=== PATIENT | male | born 1950 | race Caucasian/White ===

== ENCOUNTER → 2017-06-13 | Outpatient (CLI) | payer OTHER | LOC: CIMAGING 11:25 | PROVIDERS: ATTEND Family Medicine | DX: M25.512 Pain in left shoulder (principal) | CPT/HCPCS: 73030-PO ==

== ENCOUNTER 2017-08-13 11:23 | Outpatient (CLI) | payer OTHER ==
[2017-08-13] MEDS ORDERED: NS 1,000 ML IV SCH (11:45)
[2017-08-13] MEDS ORDERED: MIDAZOLAM 2 MG/2 ML VIAL ONE (11:55)
[2017-08-13] MEDS ORDERED: FLUMAZENIL 0.5 MG/5 ML MDV IVP ONE (11:55)
[2017-08-13] MEDS ORDERED: NALOXONE HCL 0.4 MG/ML INJ ONE (11:55)
[2017-08-13] MEDS ORDERED: fentaNYL 100 MCG/2 ML INJ ONE (11:56)
[2017-08-13 15:33] VITALS: BP 124/82; O2SAT 90
== END 2017-08-13 15:15 | disposition home or self-care (01) ==
LOC: FIMAGING 11:23
PROVIDERS: ATTEND Family Medicine
DX: M75.22 Bicipital tendinitis, left shoulder (principal); M25.812 Other specified joint disorders, left shoulder
CPT/HCPCS: 73221; J2250; J3010; J2310

== ENCOUNTER 2017-11-13 11:42 | Outpatient (CLI) | payer OTHER ==
[2017-11-13] MEDS ORDERED: NALOXONE HCL 0.4 MG/ML INJ IVP PRN (11:59)
[2017-11-13] MEDS ORDERED: FLUMAZENIL 0.5 MG/5 ML MDV IVP PRN (11:59)
[2017-11-13] MEDS ORDERED: MIDAZOLAM 2 MG/2 ML VIAL IVP PRN (11:59)
[2017-11-13] MEDS ORDERED: MEPERIDINE 25 MG/ML SYR IVP PRN (11:59)
[2017-11-13] MEDS ORDERED: fentaNYL 100 MCG/2 ML INJ IVP PRN (11:59)
[2017-11-13] MEDS ORDERED: NS 1,000 ML IV SCH (12:00)
--- NOTE | 2017-11-13 13:08 | PDGENHP ---
History & Physical Chief Complaint: shoulder pain History of Present Illness: shoulder surgery with continued pain Pertinent Past, Social, Family History: sleep apnea Cardiorespiratory Assessment: lungs clear, reg heart rate
--- NOTE | 2017-11-13 13:10 | PDPROPOC ---
Sedation Plan of Care Sedation Plan of Care: vital signs stable, mental status noted, patient educated of risks, benefits, alternatives, patient can tolerate sedation ASA Classification: ASA 1 Planned drugs: fentanyl, midazolam Mallampati Score: Class 1 Mallampati Reference Image: Patient passed 3-3-2 rule?: Yes
[2017-11-13 14:17] VITALS: PULSE 88
[2017-11-13] MEDS ORDERED: ACETAMINOPHEN 325 MG TAB PO PRN (14:35)
[2017-11-13] MEDS ORDERED: ONDANSETRON 4 MG/2 ML VIAL IVP PRN (14:35)
[2017-11-13 14:53] VITALS: BP 114/83; O2SAT 93
[2017-11-13 14:56] VITALS: RESP 18; TEMP 97.9
== END 2017-11-13 15:05 | disposition home or self-care (01) ==
LOC: FIMAGING 11:42
PROVIDERS: ATTEND Specialist
DX: Z98.890 Other specified postprocedural states (principal); S43.492A Other sprain of left shoulder joint, initial encounter
CPT/HCPCS: 73221; J2250; J3010